=== PATIENT | female | born 1950 | race African-American/Black ===

== ENCOUNTER 2022-03-11 23:10 | Day surgery (SDCO) | payer MEDICARE, MEDICAID ==
[~2022-03-11] VITALS: Ht 178 cm; Wt 96.0 kg
[2022-03-12 01:37] LABS: ALBUMIN 3.3 g/dL (3.4-5.0); BILIRUBIN - TOTAL 0.3 mg/dL (0.2-1.0); BUN/CREAT RATIO (CALC) 7.4 RATIO; CREATININE 1.22 mg/dL (0.51-0.95); GLOBULIN (CALCULATION) 3.7 g/dL; POTASSIUM 2.8 mmol/L (3.5-5.1)
[2022-03-12 01:38] LABS: CORONAVIRUS 2019 SARS-COV-2 NEGATIVE (NEGATIVE); INFLUENZA A NAA NEGATIVE (NEGATIVE)
[2022-03-12 01:41] LABS: BASOPHIL 0.1 % (0-2); EOSINOPHIL 0 % (0-7); LYMPHOCYTE 7.3 % (15-48); MCH 15.6 pg (25.0-31.0); MCHC 24.5 g/dL (32.0-36.0); MCV 63.6 fL (78.0-100.0); MONOCYTE 6.8 % (0-12); NRBC 0.4; PLT 323 K/uL (150-400); RBC 1.73 M/uL (4.20-5.40); RDW 28.3 % (11.5-14.0); WBC 7.8 K/uL (4.0-10.5)
[2022-03-12 01:44] LABS: HGB 2.7 g/dl (12.5-16.0)
[2022-03-12 10:17] LABS: HCT 23.5 % (37.0-47.0); PLT 309 K/uL (150-400); RBC 3.04 M/uL (4.20-5.40); RDW 27.6 % (11.5-14.0); WBC 6.4 K/uL (4.0-10.5)
[2022-03-12 10:20] LABS: HGB 7.4 g/dl (12.5-16.0)
[2022-03-12 10:21] LABS: MCH 24.3 pg (25.0-31.0); MCHC 31.5 g/dL (32.0-36.0); MCV 77.3 fL (78.0-100.0)
[2022-03-12 10:23] LABS: BUN/CREAT RATIO (CALC) 9.3 RATIO; CREATININE 0.97 mg/dL (0.51-0.95); POTASSIUM 3.3 mmol/L (3.5-5.1)
[2022-03-12 11:58] LABS: BILIRUBIN NEGATIVE (NEGATIVE); BLOOD TRACE-LYSED Ery/uL (NEGATIVE); COLOR YELLOW (YELLOW); GLUCOSE (U) NORMAL (NORMAL); LEUKOCYTES 1+ Leu/uL (NEGATIVE); NITRITE NEGATIVE (NEGATIVE); PROTEIN NEGATIVE (NEGATIVE); UROBILINOGEN 0.2 mg/dL (0.2-1.0); pH 6.5 (5.0-9.0)
[2022-03-12 12:23] LABS: CLARITY SLIGHTLY HAZY (CLEAR)
[2022-03-12 12:26] LABS: AMORPHOUS URATES CRYSTALS MODERATE; BACTERIA 1+; MUCOUS TRACE; URINARY RBC RARE
[2022-03-13 06:52] LABS: BASOPHIL 0.4 % (0-2); EOSINOPHIL 0.1 % (0-7); HCT 26.4 % (37.0-47.0); HGB 8.4 g/dl (12.5-16.0); LYMPHOCYTE 11.3 % (15-48); MCH 24.2 pg (25.0-31.0); MCHC 31.8 g/dL (32.0-36.0); MCV 76.1 fL (78.0-100.0); MONOCYTE 8.5 % (0-12); MPV 10.7 fL (6.0-9.5); NEUTROPHIL 77.8 % (41-80); NRBC 1.9; PLT 354 K/uL (150-400); RBC 3.47 M/uL (4.20-5.40); RDW 27.5 % (11.5-14.0); WBC 7.3 K/uL (4.0-10.5)
[2022-03-13 06:55] LABS: BUN 5 mg/dL (7-18); BUN/CREAT RATIO (CALC) 6.5 RATIO; CHLORIDE 105 mmol/L (98-107); CO2 (BICARBONATE) 22 mmol/L (21-32); CREATININE 0.77 mg/dL (0.51-0.95); FT4 (FREE T4) < 0.20 ng/dL (0.76-1.46); GLUCOSE 78 mg/dL (74-106); MAGNESIUM 2.1 mg/dL (1.8-2.4); POTASSIUM 2.7 mmol/L (3.5-5.1)
--- NOTE | 2022-03-13 13:12 | NUR ---
recieved pt from floor. pt aleart and oriented. IV fluids started in right hand. vital signs:159/83,84,16,93%RA. bed locked, call light within reach.
[2022-03-14 06:25] LABS: BASOPHIL 0.6 % (0-2); EOSINOPHIL 0.7 % (0-7); HCT 24.2 % (37.0-47.0); HGB 7.6 g/dl (12.5-16.0); LYMPHOCYTE 17.5 % (15-48); MCH 24.1 pg (25.0-31.0); MCHC 31.4 g/dL (32.0-36.0); MCV 76.6 fL (78.0-100.0); NEUTROPHIL 70.9 % (41-80); NRBC 5.1; PLT 348 K/uL (150-400); RBC 3.16 M/uL (4.20-5.40); RDW 28.5 % (11.5-14.0); WBC 7.1 K/uL (4.0-10.5)
[2022-03-14 06:49] LABS: BUN/CREAT RATIO (CALC) 3.9 RATIO; CREATININE 1.02 mg/dL (0.51-0.95); POTASSIUM 2.7 mmol/L (3.5-5.1)
[2022-03-14] MEDS ORDERED: SYNTHROID25 MCG PO (09:32)
[2022-03-14] MEDS ORDERED: POTASSIUM CHLO20 ME1 PO (09:32)
[2022-03-14] MEDS ORDERED: PROTONIX 40MG T40 MG PO (09:32)
== END 2022-03-14 12:52 | disposition home or self-care (01) ==
LOC: FMS 23:10 → FER 23:10 → FMS 03-12 10:47
PROVIDERS: Emergency Medicine; ADMIT Internal Medicine
DX: D62 Acute posthemorrhagic anemia (principal); D12.3 Benign neoplasm of transverse colon; K29.81 Duodenitis with bleeding; K57.30 Diverticulosis of large intestine without perforation or abscess without bleeding; E03.9 Hypothyroidism, unspecified; E87.6 Hypokalemia; N17.9 Acute kidney failure, unspecified; Z20.822 Contact with and (suspected) exposure to COVID-19; F17.210 Nicotine dependence, cigarettes, uncomplicated
CPT/HCPCS: 36415; 36430; 71045; 73610; 80048; 80053; 81001; 83735; 83880; 84439; 84443; 84484; 85025; 86850; 86900; 86901; 86922; 93005; C9113; G0378; J2250; J2704; J2916; J3475; J3480; J7030; J7050; P9016; Q9967; U0002

== ENCOUNTER 2022-05-21 15:52 | Emergency (ER) | payer SELFPAY ==
[~2022-05-21 15:52] MED LIST: POTASSIUM CHLO20 ME1 PO; PROTONIX 40MG T40 MG PO; SYNTHROID25 MCG PO
[2022-05-21 19:42] LABS: BASOPHIL 0.6 % (0-2); EOSINOPHIL 0.3 % (0-7); HCT 24.3 % (37.0-47.0); HGB 7.1 g/dl (12.5-16.0); LYMPHOCYTE 30.7 % (15-48); MCH 24.2 pg (25.0-31.0); MCHC 29.2 g/dL (32.0-36.0); MCV 82.9 fL (78.0-100.0); MONOCYTE 5.5 % (0-12); MPV 11.1 fL (6.0-9.5); NEUTROPHIL 62.6 % (41-80); NRBC 0; PLT 303 K/uL (150-400); RBC 2.93 M/uL (4.20-5.40); RDW 20.8 % (11.5-14.0); RETICULOCYTE COUNT 2.2 % (1.0-2.0); WBC 3.6 K/uL (4.0-10.5)
[2022-05-21 19:44] LABS: INR 1.29 (0.9-1.2); PROTHROMBIN TIME 15.7 SECONDS (11.9-13.9); PTT 25.4 SECONDS (24.9-34.6)
[2022-05-21 19:49] LABS: IRON % SATURATION 5.9 %SAT (20-50)
[2022-05-21 20:04] LABS: ALBUMIN 3.5 g/dL (3.4-5.0); BILIRUBIN - TOTAL 0.2 mg/dL (0.2-1.0); BUN/CREAT RATIO (CALC) 14.9 RATIO; CREATININE 0.87 mg/dL (0.51-0.95); GLOBULIN (CALCULATION) 4.1 g/dL; POTASSIUM 4.1 mmol/L (3.5-5.1); TOTAL PROTEIN 7.6 g/dL (6.4-8.2)
== END 2022-05-22 02:20 | disposition home or self-care (01) ==
LOC: FER 15:52
PROVIDERS: Internal Medicine
DX: D50.9 Iron deficiency anemia, unspecified (principal); R06.09 Other forms of dyspnea; E03.9 Hypothyroidism, unspecified; Z79.890 Hormone replacement therapy
CPT/HCPCS: 36415; 36430; 80053; 82728; 83540; 83550; 85025; 85610; 85730; 86850; 86900; 86901; 86922; J7040; P9016